=== PATIENT | male | born 1995 | race Caucasian/White ===

== ENCOUNTER 2017-08-10 14:22 | Emergency (ER) | payer BC ==
--- NOTE | 2017-08-10 14:54 | EDM.PDOC ---
<Alejandra Hillman - Last Filed: 08/10/17 15:40> ED HPI GENERAL MEDICAL PROBLEM - General Chief Complaint: ENT Problem Stated Complaint: NOSE INJURY Time Seen by Provider: 08/10/17 14:33 Source of Information: Reports: Patient History Limitations: Reports: No Limitations - History of Present Illness INITIAL COMMENTS - FREE TEXT/NARRATIVE: Patient is a 21 YO male who presents today after trauma to the face and nose. He states on Thursday, 3 days ago, he fell on the ice and hit his nose and face. He reports bloody nose after the incident. His front teeth are a little tender but not loose. He denies headaches, nausea, neck pain, or vision changes. He has a laceration on his nose, chin and philtrum. He states he broke his nose which required surgery in 2011. His main concern for coming to the ER today is to get imaging of the nose. - Related Data Allergies Allergy/AdvReac Type Severity Reaction Status Date / Time No Known Allergies Allergy Verified 08/10/17 14:32 Home Meds: Home Meds Dextroamphetamine/Amphetamine [Adderall Xr 20 mg Capsule] 20 mg PO ASDIRECTED [History] Past Medical History HEENT History: Reports: Other (See Below) Other HEENT History: broken nose Social & Family History - Tobacco Use Smoking Status *Q: Never Smoker Second Hand Smoke Exposure: No - Caffeine Use Caffeine Use: Reports: Soda - Recreational Drug Use Recreational Drug Use: No ED ROS ENT - Review of Systems Review Of Systems: See Below Constitutional: Reports: No Symptoms HEENT: Reports: Nosebleed, Nose Pain. Denies: Eye Pain, Vision Change Respiratory: Reports: No Symptoms Cardiovascular: Reports: No Symptoms GI/Abdominal: Reports: No Symptoms Musculoskeletal: Denies: Neck Pain Neurological: Reports: No Symptoms. Denies: Confusion, Dizziness, Headache, Difficulty Walking ED EXAM, ENT - Physical Exam Exam: See Below Exam Limited By: No Limitations General Appearance: Alert, WD/WN, No Apparent Distress Eye Exam: Bilateral Eye: EOMI, PERRL Nose: Nasal Swelling, Nasal Tenderness, Other (dry blood in the left nare, not active bleeding). No: Septal Hematoma, Septal Perforation, Active Bleeding Mouth/Throat: Lip Swelling (upper lip with ) Neck: Non-Tender, Full Range of Motion Respiratory/Chest: No Respiratory Distress Neurological: Alert, Oriented, CN II-XII Intact Psychiatric: Normal Affect, Normal Mood Skin: Warm, Dry Course - Vital Signs Last Recorded V/S: Last Vital Signs Temp Pulse 91 08/10/17 14:30 Resp 18 08/10/17 14:30 BP 121/77 08/10/17 14:30 Pulse Ox 99 08/10/17 14:30 Departure - Departure Disposition: Home, Self-Care 01 Clinical Impression: Fall Qualifiers: Encounter type: initial encounter Qualified Code(s): W19.XXXA - Unspecified fall, initial encounter Laceration of nose Qualifiers: Encounter type: initial encounter Qualified Code(s): S01.21XA - Laceration without foreign body of nose, initial encounter Nasal bone fracture Qualifiers: Encounter type: initial encounter Fracture type: closed Qualified Code(s): S02.2XXA - Fracture of nasal bones, initial encounter for closed fracture - Discharge Information Referrals: PCP,None [Primary Care Provider] - Forms: ED Department Discharge Additional Instructions: Ice your nose for 15 minutes 3 times per day for 2 days. Take motrin or aleve for pain. Follow up with your doctor when you get home. <Fletcher Pedroza - Last Filed: 08/10/17 16:05> ED HPI GENERAL MEDICAL PROBLEM - General Source of Information: Reports: Patient History Limitations: Reports: No Limitations - History of Present Illness Onset: Sudden Duration: Day(s): Location: Reports: Face Quality: Reports: Sharp Severity: Mild Improves with: Reports: None Worsens with: Reports: None Context: Reports: Trauma (He fell a few days ago and landed on his face.) Associated Symptoms: Reports: No Other Symptoms ED ROS ENT - Review of Systems Review Of Systems: See Below Constitutional: Reports: No Symptoms HEENT: Reports: Nosebleed, Nose Pain. Denies: Eye Pain, Vision Change Respiratory: Reports: No Symptoms Cardiovascular: Reports: No Symptoms GI/Abdominal: Reports: No Symptoms : Reports: No Symptoms Musculoskeletal: Denies: Neck Pain ED EXAM, ENT - Physical Exam Exam: See Below Exam Limited By: No Limitations General Appearance: Alert, WD/WN, No Apparent Distress Eye Exam: Bilateral Eye: EOMI, PERRL Ears: Normal External Exam, Hearing Grossly Normal Nose: Nasal Swelling, Nasal Tenderness, Other (dry blood in the left nare, not active bleeding superficial laceration to the bridge of his nose). No: Septal Hematoma, Septal Perforation, Active Bleeding Mouth/Throat: Lip Swelling Head: Normocephalic Neck: Non-Tender, Full Range of Motion Respiratory/Chest: No Respiratory Distress, Lungs Clear, Normal Breath Sounds Cardiovascular: Regular Rate, Rhythm, No Edema, No Murmur GI/Abdominal: Soft, Non-Tender, No Organomegaly, No Mass Extremities: Normal Inspection Course - Re-Assessments/Exams Free Text/Narrative Re-Assessment/Exam: 08/10/17 16:[address] of his maxilofacial bones shows minimal nasal bone fracture within the tip of the nasal bone. Incidental sinus findings which are felt to be chronic. Departure - Departure Time of Disposition: 16:05 Condition: Good
--- NOTE | 2017-08-10 15:41 | CT ---
CT facial bones Technique: Multiple axial sections through the nasal bone were obtained. Reconstructed coronal and sagittal images were obtained. Findings: Minimal nasal bone fracture is seen within the tip of the nasal bone. No additional nasal bone fracture is seen. Mild areas of mucosal thickening with small retention cysts are seen within both maxillary sinuses. Other paranasal sinuses are clear. No air-fluid levels are seen. No additional fracture or other bony abnormality is noted. Impression: 1. Minimal nasal bone fracture within the tip of the nasal bone. 2. Incidental sinus findings which are felt to be chronic. Diagnostic code #3
== END 2017-08-10 16:20 | disposition home or self-care (01) ==
LOC: JD.ED 14:22
DX: S02.2XXA Fracture of nasal bones, initial encounter for closed fracture (principal); W00.0XXA Fall on same level due to ice and snow, initial encounter
CPT/HCPCS: 70486; 70486-26; 99283; 99284-25